=== PATIENT | female | born 1955 | race Caucasian/White ===

== ENCOUNTER → 2016-09-13 | Outpatient (CLI) | payer OTHER ==
[~2016-09-13] MED LIST: CITALOPRAM20 MG PO; DICLOFENAC 50MG50 MG PO; LISINOPRIL/HCTZ1 TA3 PO; MULTIVITAMIN1 TA2 PO; PHENERGAN 25MG.25 M1 PO; ZEGERID 20 MG-11 CAP PO; ZOCOR40 MG PO
--- NOTE | 2016-09-16 15:18 | RADIOLOGY REPORT PS360 ---
US MAMMOTOME W/CLIP LT BREAST, US BREAST-LT COMPLETE W/AXILLA, DIG MAMM-DX UNI-LT W/CAD CLINICAL INDICATION: Abnormal mammogram and left breast ultrasound, suspicious left breast nodule ABNORMAL MAMM ORDERING PHYSICIAN: IDALMIS MOONEY PATIENT AGE: 61 years COMPARISON: Recent mammogram and ultrasound of 08/08/2016 Left breast ultrasound: Prebiopsy ultrasound performed and confirms hypoechoic lesion at 2:00 with irregular margins. Adjacent to this is a cyst. TECHNIQUE: Following informed consent under a centimeter conditions and local anesthesia with 1% lidocaine and deeper anesthesia with lidocaine mixed with epinephrine, using ultrasound guidance, a dermotomy was performed and mammotomy needle inserted and deemed to be in satisfactory position. Multiple cores were obtained. A clip was then placed. The patient tolerated the procedure well without evidence of immediate complications. Postbiopsy ultrasound showed that the adjacent cyst was nearly absent having ruptured or aspirated during the biopsy. DIG MAMM-DX UNI-LT W/CAD: Post biopsy changes are present in the upper outer quadrant of the left breast. There is some residual density at the biopsy site. A preliminary noted cyst is nearly collapsed. A clip is present but is somewhat anterior to the biopsy site by approximately 1.9 cm. This should be taken into consideration during the wire biopsy to include both the clip and the original lesion of interest. Pathology: Invasive well-differentiated ductal adenocarcinoma, low-grade ductal carcinoma in situ, estrogen receptor positive, congestion septa weakly positive, HER-2/lindsay expression negative. IMPRESSION: Successful mammotome directed biopsy of left breast showing invasive well-differentiated ductal carcinoma. Surgical consult with excisional biopsy recommended with hook wire guidance to be placed by mammography.
== END ==
LOC: RAD 09:34
DX: R92.8 Other abnormal and inconclusive findings on diagnostic imaging of breast (principal)
CPT/HCPCS: C2618; G0206-LT